=== PATIENT | male | born 1990 ===

== ENCOUNTER 2016-05-18 20:30 | Inpatient (IN) | payer OTHER ==
[~2016-05-18] VITALS: Ht 160 cm; Wt 61.2 kg
[2016-05-19] MEDS ORDERED: Magnesium Hydroxide 10 mL Oral Concentration PO PRN (00:20)
[2016-05-19] MEDS ORDERED: Alum-Mag Hydrox-Simeth 30 mL Suspension PO PRN (00:20)
[2016-05-19] MEDS ORDERED: Benzocaine-Menthol Lozenge 2/Pkg PO PRN (00:20)
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
[2016-05-19 11:57] VITALS: BP 129/79; PULSE 85; RESP 16
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
--- NOTE | 2016-05-19 18:22 | NUR ---
[facility] Day Shift Pt maintained behavioral control throughout the shift. Pt affect appears bright, somewhat blunted. Pt occasionally becomes irritable when confronted with the circumstances prior to admission and his status as an NIKOLAS patient. Pt spends most of the shift resting in his room, lightly interacting with peers in the dining room, and lightly participating in unit activities. Pt is pleasant and appropriate with staff and peers when active on the unit. Pt attended community meeting and group activities throughout the shift. Pt attended all meals and ate approx 100% of all meals. Pt declines to sign his admission paperwork.
[2016-05-19] MEDS: LORazepam 1 mg Tablet PO PRN (22:32)
--- NOTE | 2016-05-20 04:43 | NUR ---
Nursing Noc "I get really depressed when I think about loosing my job and not being able to get another one", Yes I would like a sleep aid, thankyopu.' Pt out to common area mostly observing, pleasant when approached. Continuing to monitor mood, behavior, emotional state and sleep times. CP
[2016-05-20] MEDS ORDERED: Benzocaine-Menthol Lozenge 2/Pkg PO PRN (10:30)
[2016-05-20 12:23] VITALS: BP 128/80; PULSE 93; RESP 18
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
--- NOTE | 2016-05-20 16:24 | NUR ---
Case Management/Counseling: S: "This whole thing is a misunderstanding." O: Patient slept 5.5+ hours last night as per staff. Patient denies S/I and H/I. He also denies auditory and visual hallucinations. Depression is 0/10 and anxiety is 0/10. A: Patient is guarded, anxious, dysthymic, paranoid, suspicious, hyper-vigilant, limited insight, limited judgment. P: Follow care plan, coordinate out-patient providers, monitor behavior.
--- NOTE | 2016-05-20 17:18 | NUR ---
[facility] Day Shift Pt affect and behavior mostly unchanged from previous shift. Pt maintained behavioral control throughout the shift. Pt affect appears bright, somewhat blunted. Pt occasionally becomes irritable when confronted with the circumstances prior to admission and his status as an NIKOLAS patient. Pt spends most of the shift resting in his room, lightly interacting with peers in the dining room, and lightly participating in unit activities. Pt is pleasant and appropriate with staff and peers when active on the unit. Pt attended community meeting and group activities throughout the shift. Pt attended all meals and ate approx 100% of all meals.
[2016-05-20] MEDS: LORazepam 1 mg Tablet PO PRN (19:08)
--- NOTE | 2016-05-20 20:05 | NUR ---
NURSING NOTE [id number] Mood: fine *shrugs* Affect: superficially pleasant, irritable at times Behavior: pt. visible in milieu, social w/peers. He asked to use his cell phone to look up a phone number but immediately tried to log onto Facebook. Became irritated when this keno writer / runner confiscated phone and reminded him of unit rules. Attended rec group. Watched a movie w/peers before bed. Thought processes: pt. endorses anxiety this shift and asked for PRN, denied AH/VH/SI/HI. Continues to display limited insight this shift and nonchalant when this keno writer / runner made attempts to assess his thought content. PRNs Ativan 1 mg @ 1900
--- NOTE | 2016-05-21 05:17 | NUR ---
nursing, nights, 11-7 s/o- has appeared to sleep after 2244 during q 15 minute assessments. a- no apparent distress. p- monitor behavior/emotional state, quality, times and amount of sleep, use and effect of medication. vanessa
[2016-05-21 09:00] VITALS: BP 137/73; PULSE 79; RESP 16
[2016-05-21] MEDS: LORazepam 1 mg Tablet PO PRN (10:25)
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
--- NOTE | 2016-05-21 13:28 | NUR ---
Case Management/Counseling: S: "When can I leave?" O: Patient slept 7.5 hours last night as per staff. Patient denies S/I and H/I. He also denies auditory and visual hallucinations. Depression is 0/10 and anxiety is 0/10. A: Patient is cooperative, pleasant, dysthymic, limited judgment. P: Follow care plan, coordinate out-patient providers, monitor behavior.
--- NOTE | 2016-05-21 14:22 | NUR ---
Nursing Dayshift: S: "I don't feel any of that right know." O: Patient at present denying anxiety, depression, harmful thoughts, and hallucinations. Earlier had been c/o "I need something to make me feel better." Anxiety at that time was rated at a 10/10. Received Ativan 1 mg PO at 1025 with patient verbalizing effectiveness. Has been interacting with select peers though hesitant to initiate interaction. Has been cooperative with meds. Utilizing the game room this afternoon. Eating well at meals. A: Calmer later in shift. P: CPOC. Monitor mood and behavior.
--- NOTE | 2016-05-21 18:48 | NUR ---
[facility] Day Shift Pt affect and behavior mostly unchanged from previous shift. Pt maintained behavioral control throughout the shift. Pt affect appears bright, somewhat blunted. Pt continues to display dissatisfaction with his status as an NIKOLAS patient and the circumstances that led to his admission. Pt spends most of the shift resting in his room, lightly interacting with peers in the dining room, and lightly participating in unit activities. Pt is pleasant and appropriate with staff and peers when active on the unit. Pt attended group activities throughout the shift. Pt attended all meals and ate approx 100% of all meals.
--- NOTE | 2016-05-22 05:14 | NUR ---
nursing, nights, 11-7 s/o- has appeared to sleep after 2214. up briefly at 0422 to check the time and easily returned to sleep. assessed q 15 minutes. a- no apparent distress. p- monitor behavior/emotional state, quality, times and amount of sleep, use and effect of medication. vanessa
--- NOTE | 2016-05-22 05:20 | NUR ---
Nursing Note Tap Dancer 7p -7a Received pt. in snider at start of shift. I am feeling calmer now after taking the medication. I am able to focus enough to read. Pt is pleasant, calm and appropriate, affect blunted, mood neutral, thoughts logical and linear in conversation, hygiene and appetite good. Limited insight, judgement Fair. Pt reported he had a hard day today after hearing that court is continued but has accepted the decision and is going to make the best of it. Pt stated he got "really stressed out and had a meltdown". When asked about the origin of the stress he stated "I was spending too much time alone, held up in my house". Pt reports his twin brother and family is in [place] and he has little support. "I should probably get a dog". Pt reports he has some concern about placement when he is discharged. "I need to find a new place. I cant go back".
[2016-05-22] MEDS: LORazepam 1 mg Tablet PO PRN ×2 (08:23→17:07)
[2016-05-22 10:49] VITALS: BP 125/80; PULSE 69; RESP 16
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
--- NOTE | 2016-05-22 16:06 | NUR ---
Salesperson Furs./ c.m. S.:"I'm feeling good today." O.: met with pt. to discuss his progress. He "didn't sleep well last night. Sleeping medication didn't help. I had a bad nightmare. I never had nightmares before." He felt "a little bit dizzy today" but he admitted that dizziness was getting better, less noticeable. He denied SI/HI, denied AH/VH, denied anxiety or depression - "it's pretty boring here." He said that meds were helping with his thoughts, concentration and anxiety. He was able to focus well today and he didn't feel anxious. He was in and out of his room mostly keeping to himself. A.: pt. is cooperative, pleasant, isolative, has a bright affect and a positive attitude. P.: monitor behavior, work on Safety plan, monitor meds intake; follow care plan.
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
--- NOTE | 2016-05-22 17:55 | NUR ---
Nursing Dayshift: S: "Hey, can I get one of those anxiety pills?" O: Patient c/o increased anxiety at a 6/10 and received Ativan 1 mg PO at 1707 with effective results per patient. Has utilized Hydroxyzine and Ativan earlier in the AM for episodes of increased anxiety with effectiveness. Has been out of his room much of the day. Showered. Ate well at meals. Social with peers. Rates depression at a 3/10. Denies harmful thoughts and hallucinations. A: Anxious. Blunted affect. Talkative on approach. P: CPOC. Monitor mood and behavior.
--- NOTE | 2016-05-22 22:50 | NUR ---
Nursing Note Evening shift 7pm to 11pm Pt awake and walking the unit at start of shift with a peer. Spent time watching a movie with peer in the art room before taking HS Meds and going to bed at approx 2230. Pt's affect was sullen and mood dysphoric, thoughts logical and linear, is future oriented, considering placement options upon discharge. Pt denies SI, plan or intent, denies A/VH, insight and judgement improving. Pt is medication compliant, no side effects of medical issues reported or observed.
--- NOTE | 2016-05-23 05:09 | NUR ---
nursing, nights, 11-7 s/o- has appeared to sleep after 2300 during q 15 minute assessments. a- no apparent distress. p- monitor behavior/emotional state, quality, times and amount of sleep, use and effect of medication. vanessa
[2016-05-23] MEDS: LORazepam 1 mg Tablet PO PRN ×2 (11:51→17:54)
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
--- NOTE | 2016-05-23 13:11 | NUR ---
Nursing Dayshift: S: "I think the meds are working okay. I'm feeling pretty good. Maybe I'll go home in a couple of days." O: Patient exhibiting a good mood today. Interacting well with staff and peers. Participating well in unit activities. Good appetite at meals. Easily approachable. Denies anxiety, depression, harmful thoughts, and hallucinations. A: Calm. Cooperative. Positive focused. P: CPOC. Monitor mood and behavior.
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
--- NOTE | 2016-05-23 18:33 | NUR ---
Observations 0900 to 2130 Pt affect and mood was friendly, labile and upset. Pt speech and eye contact was good . Pt wandered around the unit most of the day, in and out of room and group room listening to music. Pt ate meals in D.R. and ate approximately 100% of meals. Pt ate snack. Pt attend group and unit activities today. Pt attended community meeting and set a goal for the day. Pt was social with peers. Pt continues to state that he doesn't want to be here. Pt took several showers. Pt layed in his bed and rested before dinner. Pt apologized to director underwriter sales for having an outburst earlier in the day. Pt was observed every 15 minutes throughout the shift as ordered.
--- NOTE | 2016-05-23 20:12 | NUR ---
Nursing Note Evening Shift 7pm to 11pm AAOx3 Behavior - pleasant, calm and cooperative. Walking with peers on unit, having casual conversations Affect euthymic, Mood congruent Thoughts - Organized, linear and goal directed, no delusional content elicited or observed. Denies A/VH Speech- Normal rate and rhythm Nursing/ Medication Pt is medication compliant, no side effects or medical issues reported or observed. Reported Ativan and Vistaril were effective in managing anxiety and reports anxiety 0 at this time.
--- NOTE | 2016-05-24 05:04 | NUR ---
weapons specialist note 11pm to 7am Pt wnt to bed at 2115 and woke up at 0230 requesting a prn for anxiety 12/14. Given Ativan 1mg po and Vistaril 50 mg po prn with good relief. Pt went back to bed and slept interrupted remainder of shift. Monitored q 15 for safety location and accountability
--- NOTE | 2016-05-24 10:19 | NUR ---
Nursing. Day shift: S: I want to talk to others here before I leave. O: Елена attended wrap up group and gave the above as a goal for the day. He has been out on the open unit walking in the snider, watching TV with peers and having meals and snacks. PRN medication. At 1020, Елена approached staff and requested medicaiton for anxiety "My anxiety is kicking up because of something here." Declined to explain farther when asked by telegraphic typewriter operator. Rated Anxiety at 7/10, depression at 2/10 and denies suicidal ideation. Received Hydroxyzine 50 mg at 1025 po. Alert and oriented. A: Guarded. Anxious. P: Assess for anxiety prn med effectiveness
--- NOTE | 2016-05-24 16:11 | NUR ---
Obs Dayshift Pt is well engaged on the unit w/ staff and peers. Participates in groups and in activities on the unit. Pt is polite, upbeat, positive, pressured, energetic. Pt states that he is going to likely DC tomorrow after court. Asking reasonable questions for staff. Slightly inappropriate w/ peers, exchanging phone numbers, and trying to give advice to peers. Good ADL's, Good meals
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
--- NOTE | 2016-05-25 01:48 | NUR ---
Observations 1900 to 0700 Pt was out and about in the DR for most of the night. Pt socialized with a few Pt's. Pt was polite and cooperative with staff and peers. Pt did attend wrap up group. Pt had a hard time staying asleep last night. Pt first appeared asleep at 21:30 and was observed every 15 minutes through the night as directed.
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
--- NOTE | 2016-05-25 09:45 | PCM.DIMED ---
Discharge Instructions Date of Service May 25, 2016 Dates of Hospitalization May 19, 2016 at 00:04 Discharge Diagnosis Discharge Diagnosis Adjustment DO with disturbance of emotions and Conduct Psychosis NOS resolved Diet No restrictions Activity No restrictions Agusto Smith DO May 25, 2016 09:45
[2016-05-25] MEDS ORDERED: ARIP5TAB5 PO (09:46)
[2016-05-25 10:33] VITALS: BP 151/90; PULSE 81; RESP 17
--- NOTE | 2016-05-25 12:02 | NUR ---
Railroad Accountant./ c.m. S.:"I'm feeling good." O.: met with pt. to discuss his discharge plan. He completed Safety plan. He denied SI/HI, denied AH/VH or paranoid/delusional thoughts. He denied depression. He had "a little of anxiety but not too bad." Core Java Engineer showed pt. anxiety coping exercise and asked him to practice it during the day. Pt. slept well last night. He is waiting for his cousin to come and pick him up around 16:00. He is out of his room talking to peers and attending unit activities. he has follow up appt. for meds on June 01 at 11:00 am with his PCP, Dr. China Tinoco MD at [facility] in [place] ([phone]). A.: pt. is cooperative, pleasant, has a bright affect and a positive attitude. P.: monitor behavior, follow care plan.
--- NOTE | 2016-05-25 12:18 | NUR ---
Nursing: Day shift: S: I am ready to go. O: Denies suicidality, depression or anxiety. Is aware that he will be discharged today. Attended court dismissal without any problem and nodded that he understands that he will be discharged. Has been interacting with peers on the unit; Walking in halls, doing activities in the RT room, and out for meals. No complaints or requests today. All outcomes met. Gathered belongings for discharge. A: Awaiting discharge. Addendum: 05/25/16 at 1226 by ERICK GAVIN RN Amended: Links added.
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
== END 2016-05-25 14:45 | disposition home or self-care (01) | DRG 882 ==
LOC: MHC 05-19 00:04
PROVIDERS: ADMIT Psychiatry & Neurology Psychiatry; ATTEND Psychiatry & Neurology Psychiatry
DX: F43.25 Adjustment disorder with mixed disturbance of emotions and conduct (principal); F19.959 Other psychoactive substance use, unspecified with psychoactive substance-induced psychotic disorder, unspecified; F17.200 Nicotine dependence, unspecified, uncomplicated